=== PATIENT | male | born 1980 | race African-American/Black ===

== ENCOUNTER 2018-04-16 19:27 | Emergency (ER) | payer MEDICARE, OTHER ==
[2018-04-16 19:59] LABS: #Basophils 0.1 thou/uL (0.0-0.2); #Eosinphils 0.2 thou/uL (0.0-0.7); #Lymphocytes 1.8 thou/uL (1.20-3.40); #Monocytes 0.8 thou/uL (0.11-0.59); #Neutrophils 7.8 thou/uL (1.40-6.50); %Basophils 1.1 % (0.0-1.0); %Eosinophils 2.2 % (0.0-10.0); %Lymphocytes 16.6 % (21.0-51.0); %Neutrophils 73.2 % (42.0-75.0); Hemoglobin 13.3 g/dL (14.0-18.0); Mean Corpuscular Hemoglobin 26.5 pg (27.0-31.0); Mean Corpuscular Volume 80.4 fL (78.0-98.0); Mean Platelet Volume 10.2 fL (7.4-10.4); Platelet Count 252 thou/uL (130-400); RBC Distribution Width 14.9 % (11.5-14.5); Red Blood Cell (RBC) Count 5.02 mill/uL (4.70-6.10); White Blood Cell (WBC) Count 10.7 thou/uL (4.8-10.8)
[2018-04-16] MEDS ORDERED: Furosemide 40 MG/4 ML VIAL ONE (21:20)
[2018-04-16] MEDS ORDERED: Aspirin Chewable 81 MG TAB ONE (21:20)
--- NOTE | 2018-04-16 22:23 | RAD ---
PORTABLE CHEST: 04/16/18 Comparison is made with an 01/06/17 study from [facility]. The heart is moderately enlarged. There are no clear congestive findings today. There is certainly no edema or pleural effusion. At most, some of the upper lobe vessels may be very slightly prominent, b ut the finding is marginal at best at this point. If symptoms progress, then serial followup films co uld be useful. There is no focal pulmonary infiltrate. The trachea is midline. IMPRESSION: Moderate cardiomegaly that is comparable to the 2017 study. POS: HOME
== END 2018-04-16 20:57 | disposition short-term general hospital (02) ==
LOC: BURERS 19:27
DX: R07.89 Other chest pain (principal); I11.0 Hypertensive heart disease with heart failure; I50.9 Heart failure, unspecified; F17.210 Nicotine dependence, cigarettes, uncomplicated; Z79.899 Other long term (current) drug therapy
CPT/HCPCS: 71045; 82553; 83880; 84484; 85025; 93005; 96374; J1940

== ENCOUNTER 2020-12-23 17:44 | Emergency (ER) | payer MEDICARE, OTHER ==
[2020-12-23] MEDS ORDERED: Ibuprofen 800 MG TAB ONE (19:22)
== END 2020-12-23 19:26 | disposition home or self-care (01) ==
LOC: BURERS 17:44
DX: R07.89 Other chest pain (principal); I25.2 Old myocardial infarction; I11.0 Hypertensive heart disease with heart failure; I50.9 Heart failure, unspecified
CPT/HCPCS: 71046; 93005; 94760